=== PATIENT | male | born 1960 | race Caucasian/White ===

== ENCOUNTER 2017-06-19 02:34 | Emergency (ER) | payer BC ==
[~2017-06-19] VITALS: Ht 175.3 cm; Wt 87.1 kg
[2017-06-19 02:42] VITALS: Ht 175.3 cm; Wt 87.1 kg
[2017-06-19 06:23] VITALS: BP 145/93
== END 2017-06-19 06:23 | disposition home or self-care (01) ==
LOC: ED 02:34 → EDBD 02:34 → ED 06:23
DX: J45.901 Unspecified asthma with (acute) exacerbation (principal); J18.9 Pneumonia, unspecified organism; Z88.0 Allergy status to penicillin
CPT/HCPCS: J1100; J7613; J7644